=== PATIENT | female | born 1980 | race Caucasian/White ===

== ENCOUNTER 2018-05-31 21:27 | Emergency (ER) | payer OTHER ==
[2018-06-01] MEDS ORDERED: METHOCARBAMOL 750 MG TABLET PO ONE
[2018-06-01] MEDS ORDERED: IBUPROFEN 600 MG TABLET PO ONE
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
[2018-06-01] MEDS ORDERED: MORPHINE SULFATE IR 15 MG TABLET PO ONE (02:09)
[2018-06-01] MEDS ORDERED: ACETAMINOPHEN 325 MG TABLET PO ONE (02:09)
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
[2018-06-01 03:43] VITALS: BP 117/82
== END 2018-06-01 03:41 | disposition home or self-care (01) ==
LOC: ER 21:27
DX: S00.432A Contusion of left ear, initial encounter (principal); S49.92XA Unspecified injury of left shoulder and upper arm, initial encounter; S59.902A Unspecified injury of left elbow, initial encounter; R68.84 Jaw pain; H92.02 Otalgia, left ear; V69.40XA Driver of heavy transport vehicle injured in collision with unspecified motor vehicles in traffic accident, initial encounter
CPT/HCPCS: 70110; 99284